=== PATIENT | female | born 1990 | race African-American/Black ===

== ENCOUNTER 2019-12-02 10:53 | Inpatient (IN) | payer MEDICAID, OTHER ==
[~2019-12-02] VITALS: Ht 167.6 cm; Wt 88.0 kg
[2019-12-02] MEDS ORDERED: ONDANSETRON HCL 4MG/2ML INJ IV STA (11:37)
[2019-12-02] MEDS ORDERED: SODIUM CHLORIDE 0.9% 1,000 ML IV ONE (11:44)
[2019-12-02] MEDS ORDERED: ACETAMINOPHEN 325MG TABLET PO ONE (11:45)
[2019-12-02 12:28] LABS: BASOPHILS % 0.3 % (0.0-2.0); HEMATOCRIT. 50.5 % (36.0-48.0); LYMPHOCYTES % 8.1 % (20.0-50.0); MEAN CORPUSCULAR HEMOGLOBIN 28.2 pg (28.0-32.0); MEAN PLATELET VOLUME 8.6 fl (7.4-10.4); MONOCYTES % 7.5 % (2.0-8.0); NEUTROPHILS % 84.1 % (40.0-76.0); PLATELET 369 x1000/uL (130-400); RED BLOOD CELL COUNT 6.02 mill/uL (4.2-5.4)
[2019-12-02 12:33] LABS: CHLORIDE 102 mEq/L (98-107)
[2019-12-02 12:37] LABS: HCG SCREEN NEGATIVE
[2019-12-02] MEDS ORDERED: AZITHROMYCIN 500 MG in DEXT 5% WATER 250 ML IV SCH (13:30)
[2019-12-02] MEDS ORDERED: CEFTRIAXONE 1 G PREMIX 50 ML IV ONE (13:30)
[2019-12-02 14:24] LABS: CLARITY URINE TURBID (CLEAR); COLOR URINE YELLOW (YELLOW); KETONES URINE 4+ (NEGATIVE); LEUKOCYTE ESTERASE URINE 1+ (NEGATIVE); NITRITE URINE NEGATIVE (NEGATIVE); OCCULT BLOOD URINE 2+ (NEGATIVE); PROTEIN URINE 4+ (NEGATIVE); SPECIFIC GRAVITY URINE 1.044 (1.005-1.030)
[2019-12-02] MEDS ORDERED: DEXTROSE 50% WATER 50ML SYRINGE IV PRN (15:00)
[2019-12-02] MEDS ORDERED: ONDANSETRON HCL 4MG/2ML INJ IV ONE (15:00)
[2019-12-02] MEDS ORDERED: CEFTRIAXONE 1 G PREMIX 50 ML IV SCH (15:00)
[2019-12-02] MEDS ORDERED: FAMOTIDINE 20MG/2ML VIAL IV ONE (15:00)
[2019-12-02] MEDS: AZITHROMYCIN 500 MG TABLET PO SCH (15:00)
[2019-12-02] MEDS ORDERED: FLUCONAZOLE 150MG TABLET PO NR (15:15)
[2019-12-02] MEDS ORDERED: FLUCONAZOLE 50MG TABLET PO ONE (15:15)
[2019-12-02] MEDS: BLOOD SUGAR DIAGNOSTIC STRIP TEST SCH ×2 (17:00→21:00)
[2019-12-02] MEDS: INSULIN LISPRO 100 UNITS/ML SUBCUT SCH ×3 (18:20→23:46)
[2019-12-02] MEDS ORDERED: HYDROCODONE/ACETAMINOPHEN 5/325MG TABLET PO PRN (19:00)
[2019-12-02] MEDS: KETOROLAC 30MG/ML VIAL IV SCH (19:21)
[2019-12-02] MEDS: METOCLOPRAMIDE HCL 10MG/2ML VIAL IV PRN (21:01)
[2019-12-02 22:00] VITALS: BP 116/77
[2019-12-02] MEDS: ASCORBIC ACID 500 MG TABLET PO SCH (23:45)
[2019-12-03] MEDS ORDERED: GLIP5TAB12 PO (02:14)
[2019-12-03 04:00] VITALS: BP 137/82
[2019-12-03] MEDS: KETOROLAC 30MG/ML VIAL IV SCH ×3 (06:34→23:57)
[2019-12-03] MEDS: BLOOD SUGAR DIAGNOSTIC STRIP TEST SCH ×4 (07:57→20:59)
[2019-12-03 08:00] VITALS: BP 114/77
[2019-12-03] MEDS: ASCORBIC ACID 500 MG TABLET PO SCH ×2 (08:16→20:43)
[2019-12-03] MEDS: ZINC SULFATE 220 MG ( 50 ) CAPSULE PO SCH (08:16)
[2019-12-03] MEDS: ENOXAPARIN 30MG/0.3ML SYR SUBCUT SCH ×2 (08:16→20:43)
[2019-12-03] MEDS: AZITHROMYCIN 500 MG TABLET PO SCH (08:16)
[2019-12-03] MEDS: INSULIN LISPRO 100 UNITS/ML SUBCUT SCH ×4 (08:18→22:15)
[2019-12-03] MEDS: METOCLOPRAMIDE HCL 10MG/2ML VIAL IV PRN (09:23)
[2019-12-03 12:00] VITALS: BP 102/66
[2019-12-03] MEDS: ONDANSETRON HCL 4MG/2ML INJ IV PRN (13:11)
[2019-12-03] MEDS: CEFTRIAXONE 1 G PREMIX 50 ML IV SCH (13:12)
[2019-12-03] MEDS ORDERED: BISACODYL 10MG SUPP PR PRN (14:00)
[2019-12-03] MEDS ORDERED: PROCHLORPERAZINE 10MG/2ML VIAL IV PRN (14:00)
[2019-12-03] MEDS ORDERED: SODIUM CHLORIDE 0.9% 1,000 ML IV SCH (14:00)
[2019-12-03 16:00] VITALS: BP 115/73
[2019-12-03] MEDS ORDERED: HYDROXYCHLOROQUINE SULFATE 200MG TABLET PO NR (16:00)
[2019-12-03] MEDS ORDERED: GUAIFENESIN/DM 600MG/30MG ER TAB 12HR PO PRN (16:15)
[2019-12-03] MEDS ORDERED: ALBUTEROL 6.7GM HFA INHALER ORI SCH (16:15)
[2019-12-03] MEDS ORDERED: HYDROXYCHLOROQUINE SULFATE 200MG TABLET PO SCH (17:00)
[2019-12-03] MEDS: ALBUTEROL 6.7GM HFA INHALER ORI SCH (18:00)
[2019-12-03 20:00] VITALS: BP 92/43
[2019-12-03] MEDS: THIAMINE HCL 100MG TABLET PO SCH (20:43)
[2019-12-03] MEDS: INSULIN GLARGINE UD 100 UNITS/ML SYR SUBCUT SCH (23:56)
[2019-12-04] VITALS: BP 123/80
[2019-12-04] MEDS: ALBUTEROL 6.7GM HFA INHALER ORI SCH ×4 (00:31→18:12)
[2019-12-04 04:00] VITALS: BP 115/73
[2019-12-04] MEDS: BLOOD SUGAR DIAGNOSTIC STRIP TEST SCH ×4 (07:40→21:48)
[2019-12-04 08:00] VITALS: BP 117/72
[2019-12-04] MEDS: ASCORBIC ACID 500 MG TABLET PO SCH ×2 (09:24→21:47)
[2019-12-04] MEDS: AZITHROMYCIN 250 MG TABLET PO SCH (09:25)
[2019-12-04] MEDS: ZINC SULFATE 220 MG ( 50 ) CAPSULE PO SCH (09:25)
[2019-12-04] MEDS: THIAMINE HCL 100MG TABLET PO SCH ×2 (09:25→21:47)
[2019-12-04] MEDS: ENOXAPARIN 30MG/0.3ML SYR SUBCUT SCH ×2 (09:25→21:47)
[2019-12-04] MEDS: INSULIN LISPRO 100 UNITS/ML SUBCUT SCH ×4 (09:26→22:04)
[2019-12-04] MEDS: ONDANSETRON HCL 4MG/2ML INJ IV PRN ×2 (09:48→18:12)
[2019-12-04] MEDS: KETOROLAC 30MG/ML VIAL IV SCH (09:48)
[2019-12-04] MEDS: INSULIN GLARGINE UD 100 UNITS/ML SYR SUBCUT SCH ×2 (11:24→22:03)
[2019-12-04 13:13] VITALS: BP 96/56
[2019-12-04] MEDS: METOCLOPRAMIDE HCL 10MG/2ML VIAL IV PRN (13:27)
[2019-12-04] MEDS: CEFTRIAXONE 1 G PREMIX 50 ML IV SCH (13:27)
[2019-12-04] MEDS ORDERED: MORPHINE SULFATE 2 MG/ML CPJ (NOT FOR IM USE) IV PRN (13:45)
[2019-12-04 16:54] VITALS: BP 92/59
[2019-12-04] MEDS: HYDROXYCHLOROQUINE SULFATE 200MG TABLET PO SCH (18:12)
[2019-12-04 20:00] VITALS: BP 112/66
[2019-12-05] VITALS: BP 110/68
[2019-12-05] MEDS: ALBUTEROL 6.7GM HFA INHALER ORI SCH ×4 (00:25→18:00)
[2019-12-05] MEDS: ONDANSETRON HCL 4MG/2ML INJ IV PRN ×2 (01:04→13:30)
[2019-12-05 04:00] VITALS: BP 101/56
[2019-12-05] MEDS: BLOOD SUGAR DIAGNOSTIC STRIP TEST SCH ×4 (06:40→21:50)
[2019-12-05 08:00] VITALS: BP 97/60
[2019-12-05] MEDS: AZITHROMYCIN 250 MG TABLET PO SCH (08:48)
[2019-12-05] MEDS: ASCORBIC ACID 500 MG TABLET PO SCH ×2 (08:48→21:50)
[2019-12-05] MEDS: HYDROXYCHLOROQUINE SULFATE 200MG TABLET PO SCH ×2 (08:48→21:50)
[2019-12-05] MEDS: THIAMINE HCL 100MG TABLET PO SCH ×2 (08:48→21:50)
[2019-12-05] MEDS: ZINC SULFATE 220 MG ( 50 ) CAPSULE PO SCH (08:48)
[2019-12-05] MEDS: ENOXAPARIN 30MG/0.3ML SYR SUBCUT SCH (08:49)
[2019-12-05] MEDS: INSULIN LISPRO 100 UNITS/ML SUBCUT SCH ×4 (09:02→22:33)
[2019-12-05 09:56] LABS: BASOPHILS % 0.3 % (0.0-2.0); EOSINOPHILS % 0.3 % (0.0-5.0); HEMATOCRIT. 43.5 % (36.0-48.0); HEMOGLOBIN. 14.9 g/dL (12.0-16.0); LYMPHOCYTES % 26.5 % (20.0-50.0); MEAN CORPUSCULAR HEMOGLOBIN 27.8 pg (28.0-32.0); MEAN CORPUSCULAR VOLUME 81.3 fL (81.0-99.0); MEAN PLATELET VOLUME 8.1 fl (7.4-10.4); MONOCYTES % 12.5 % (2.0-8.0); NEUTROPHILS % 60.4 % (40.0-76.0); PLATELET 356 x1000/uL (130-400); RED BLOOD CELL COUNT 5.35 mill/uL (4.2-5.4); RED CELL DISTRIBUTION WIDTH 13.8 % (11.6-14.6)
[2019-12-05 10:14] LABS: CHLORIDE 101 mEq/L (98-107)
[2019-12-05 10:23] LABS: PHOSPHORUS 2.8 mg/dL (2.5-4.9)
[2019-12-05 12:00] VITALS: BP 98/51
[2019-12-05] MEDS: INSULIN GLARGINE UD 100 UNITS/ML SYR SUBCUT SCH ×2 (12:04→22:34)
[2019-12-05] MEDS: KETOROLAC 30MG/ML VIAL IV SCH (12:05)
[2019-12-05] MEDS ORDERED: SORBITOL 70% SOLN 30ML PO PRN (13:15)
[2019-12-05] MEDS: CEFTRIAXONE 1 G PREMIX 50 ML IV SCH (13:59)
[2019-12-05 16:00] VITALS: BP 105/54
[2019-12-05 20:00] VITALS: BP 100/64
[2019-12-06] VITALS: BP 103/68
[2019-12-06] MEDS: ONDANSETRON HCL 4MG/2ML INJ IV PRN ×2 (00:47→14:14)
[2019-12-06 04:00] VITALS: BP 106/64
[2019-12-06] MEDS: ALBUTEROL 6.7GM HFA INHALER ORI SCH ×3 (05:35→11:47)
[2019-12-06] MEDS: BLOOD SUGAR DIAGNOSTIC STRIP TEST SCH ×2 (05:36→11:48)
[2019-12-06 08:00] VITALS: BP 96/63
[2019-12-06] MEDS: INSULIN LISPRO 100 UNITS/ML SUBCUT SCH ×2 (08:10→12:19)
[2019-12-06] MEDS: THIAMINE HCL 100MG TABLET PO SCH (08:58)
[2019-12-06] MEDS: ZINC SULFATE 220 MG ( 50 ) CAPSULE PO SCH (08:58)
[2019-12-06] MEDS: ASCORBIC ACID 500 MG TABLET PO SCH (08:58)
[2019-12-06] MEDS: AZITHROMYCIN 250 MG TABLET PO SCH (08:59)
[2019-12-06] MEDS: HYDROXYCHLOROQUINE SULFATE 200MG TABLET PO SCH (08:59)
[2019-12-06] MEDS ORDERED: ENOXAPARIN 40MG/0.4ML SYR SUBCUT SCH (09:00)
[2019-12-06] MEDS: INSULIN GLARGINE UD 100 UNITS/ML SYR SUBCUT SCH (10:41)
[2019-12-06] MEDS: CEFTRIAXONE 1 G PREMIX 50 ML IV SCH (14:14)
== END 2019-12-06 16:50 | disposition home or self-care (01) | DRG 720 ==
LOC: ER 10:53 → 7WST 14:39 → ENRESERV 21:00
PROVIDERS: ADMIT Internal Medicine; ATTEND Internal Medicine
DX: A41.89 Other specified sepsis (principal); U07.1 COVID-19; J96.00 Acute respiratory failure, unspecified whether with hypoxia or hypercapnia; E44.0 Moderate protein-calorie malnutrition; E11.9 Type 2 diabetes mellitus without complications; E87.1 Hypo-osmolality and hyponatremia; J12.89 Other viral pneumonia; J45.909 Unspecified asthma, uncomplicated; N39.0 Urinary tract infection, site not specified; Z88.5 Allergy status to narcotic agent; Z68.31 Body mass index [BMI] 31.0-31.9, adult; Z82.49 Family history of ischemic heart disease and other diseases of the circulatory system
CPT/HCPCS: 36415; 71045; 74018; 80053; 81003; 82728; 82962; 83605; 83735; 84100; 84145; 84703; 85025; 87420; 87635; 87804; 93005; 99285; J0456; J0696; J0780; J1650; J1815; J1885; J2405; J2765; J3490; J7030; J7060

== ENCOUNTER 2020-04-14 09:27 | Emergency (ER) | payer OTHER, MEDICAID ==
[~2020-04-14] VITALS: Ht 167.6 cm; Wt 87.0 kg
[~2020-04-14 09:27] MED LIST: GLIP5TAB12 PO
[2020-04-14] MEDS ORDERED: ONDANSETRON HCL 4MG/2ML INJ IV STA (10:02)
[2020-04-14] MEDS ORDERED: FAMOTIDINE 20MG/2ML VIAL IV STA (10:02)
[2020-04-14] MEDS ORDERED: SODIUM CHLORIDE 0.9% 1,000 ML IV ONE (10:02)
[2020-04-14] MEDS ORDERED: LORAZEPAM 2MG/ML CPJ IV ONE (10:15)
[2020-04-14 10:28] LABS: BASOPHILS % 0.5 % (0.0-2.0); EOSINOPHILS % 0.1 % (0.0-5.0); HEMATOCRIT. 40.6 % (36.0-48.0); LYMPHOCYTES % 11.5 % (20.0-50.0); MEAN CORPUSCULAR HEMOGLOBIN 28.7 pg (28.0-32.0); MEAN CORPUSCULAR VOLUME 83.6 fL (81.0-99.0); MEAN PLATELET VOLUME 7.9 fl (7.4-10.4); MONOCYTES % 3.5 % (2.0-8.0); NEUTROPHILS % 84.4 % (40.0-76.0); PLATELET 452 x1000/uL (130-400); RED BLOOD CELL COUNT 4.86 mill/uL (4.2-5.4); RED CELL DISTRIBUTION WIDTH 13.9 % (11.6-14.6)
[2020-04-14 10:30] LABS: CHLORIDE 101 mEq/L (98-107)
[2020-04-14] MEDS ORDERED: MORPHINE SULFATE 4 MG/ML CPJ (NOT FOR IM USE) IV ONE (10:30)
[2020-04-14 10:33] LABS: INR 1.1; PROTHROMBIN TIME 11.4 sec (9.6-11.0)
[2020-04-14 10:34] LABS: ETHANOL BLOOD < 10 mg/dL
[2020-04-14 10:47] LABS: HCG SCREEN NEGATIVE
[2020-04-14 11:24] LABS: CLARITY URINE TURBID (CLEAR); COLOR URINE YELLOW (YELLOW); KETONES URINE 4+ (NEGATIVE); LEUKOCYTE ESTERASE URINE 3+ (NEGATIVE); NITRITE URINE NEGATIVE (NEGATIVE); OCCULT BLOOD URINE TRACE (NEGATIVE); PH URINE 5.5 (4.5-8.0); PROTEIN URINE 1+ (NEGATIVE); SPECIFIC GRAVITY URINE 1.038 (1.005-1.030); UROBILINOGEN URINE 0.2 E.U./dL (0.2-1.0)
[2020-04-14 11:44] LABS: *AMPHETAMINES SCREEN URINE NEGATIVE (NEGATIVE); *BARBITURATES SCREEN URINE NEGATIVE (NEGATIVE); *BENZODIAZEPINES SCREEN URINE NEGATIVE (NEGATIVE); *COCAINE SCREEN URINE NEGATIVE (NEGATIVE)
[2020-04-14 11:45] LABS: CANNABINOID URINE SCREEN NEGATIVE (NEGATIVE); METHADONE URINE SCREEN NEGATIVE (NEGATIVE); OPIATES URINE SCREEN NEGATIVE (NEGATIVE); PHENCYCLIDINE URINE SCREEN NEGATIVE (NEGATIVE)
[2020-04-14 14:30] VITALS: BP 119/74
== END 2020-04-14 15:00 | disposition home or self-care (01) ==
LOC: ER 09:27
DX: R10.13 Epigastric pain (principal); E11.65 Type 2 diabetes mellitus with hyperglycemia; Z86.19 Personal history of other infectious and parasitic diseases
CPT/HCPCS: 36415; 71045; 80053; 80305; 80320; 81003; 83690; 84484; 84703; 85025; 85610; 87086; 93005; 96361; 96374; 96375; 99285; J2060; J2270; J2405; J3490; J7030; G0480

== ENCOUNTER 2020-05-26 06:32 | Emergency (ER) | payer MEDICAID ==
[~2020-05-26] VITALS: Ht 162.6 cm; Wt 73.0 kg
[2020-05-26] MEDS ORDERED: KETOROLAC 30MG/ML VIAL IV STA (07:29)
[2020-05-26] MEDS ORDERED: ONDANSETRON HCL 4MG/2ML INJ IV STA (07:29)
[2020-05-26] MEDS ORDERED: LORAZEPAM 2MG/ML CPJ IV ONE (07:30)
[2020-05-26] MEDS ORDERED: SODIUM CHLORIDE 0.9% 1,000 ML IV ONE (07:30)
[2020-05-26 08:16] LABS: BASOPHILS % 0.4 % (0.0-2.0); EOSINOPHILS % 0.8 % (0.0-5.0); HEMOGLOBIN. 13.1 g/dL (12.0-16.0); LYMPHOCYTES % 20.3 % (20.0-50.0); MEAN CORPUSCULAR HEMOGLOBIN 28.3 pg (28.0-32.0); MEAN CORPUSCULAR VOLUME 84.2 fL (81.0-99.0); MEAN PLATELET VOLUME 7.1 fl (7.4-10.4); MONOCYTES % 6.5 % (2.0-8.0); PLATELET 415 x1000/uL (130-400); RED BLOOD CELL COUNT 4.63 mill/uL (4.2-5.4); RED CELL DISTRIBUTION WIDTH 14.7 % (11.6-14.6)
[2020-05-26 08:27] LABS: CHLORIDE 97 mEq/L (98-107)
[2020-05-26 08:31] LABS: ETHANOL BLOOD < 10 mg/dL
[2020-05-26 09:31] LABS: HCG SCREEN NEGATIVE
[2020-05-26 10:30] VITALS: BP 135/90
[2020-05-26] MEDS ORDERED: MAGNESIUM/ALUMINUM HYDROXIDE/SIMETHICONE 30ML UDC PO STA (11:28)
[2020-05-26] MEDS ORDERED: DICYCLOMINE 10 MG/5 ML ORAL SYR PO STA (11:28)
== END 2020-05-26 12:06 | disposition home or self-care (01) ==
LOC: ER 06:32
DX: R10.13 Epigastric pain (principal); R11.2 Nausea with vomiting, unspecified; E11.9 Type 2 diabetes mellitus without complications; Z98.890 Other specified postprocedural states; Z88.5 Allergy status to narcotic agent
CPT/HCPCS: 36415; 74176; 80053; 80320; 83690; 84703; 85025; 93005; 96374; 96375; 99285; J1885; J2060; J2405; J7030; G0480